=== PATIENT | female | born 1955 ===

== ENCOUNTER 2021-08-02 06:10 | Day surgery (SDC) | payer OTHER ==
[~2021-08-02] VITALS: Ht 161.3 cm; Wt 74.8 kg
[~2021-08-02 06:10] MED LIST: LEVOTHYROXINE25 MCG PO; NORVASC2.5 M1 PO
== END 2021-08-02 12:20 | disposition home or self-care (01) ==
LOC: CIR.AMB 06:10
PROVIDERS: ATTEND Colon & Rectal Surgery
DX: A63.0 Anogenital (venereal) warts (principal); Z86.010 Personal history of colon polyps; K64.1 Second degree hemorrhoids; Z20.822 Contact with and (suspected) exposure to COVID-19; I10 Essential (primary) hypertension; Z86.16 Personal history of COVID-19; E03.9 Hypothyroidism, unspecified

== ENCOUNTER 2021-08-13 00:56 | Emergency (ER) | payer OTHER ==
[~2021-08-13] VITALS: Ht 160 cm; Wt 73.9 kg
[2021-08-13] MEDS ORDERED: DIOVAN40 MG (01:07)
== END 2021-08-13 11:03 | disposition home or self-care (01) ==
LOC: ER 00:56
DX: T81.31XA Disruption of external operation (surgical) wound, not elsewhere classified, initial encounter (principal); K52.89 Other specified noninfective gastroenteritis and colitis; Z87.19 Personal history of other diseases of the digestive system; K62.5 Hemorrhage of anus and rectum; K61.0 Anal abscess; B96.5 Pseudomonas (aeruginosa) (mallei) (pseudomallei) as the cause of diseases classified elsewhere; B95.2 Enterococcus as the cause of diseases classified elsewhere; Z16.11 Resistance to penicillins; Z16.29 Resistance to other single specified antibiotic; K57.30 Diverticulosis of large intestine without perforation or abscess without bleeding